=== PATIENT | male | born 1950 | race Caucasian/White ===

== ENCOUNTER 2024-04-17 15:41 | Emergency (ER) | payer OTHER, SELFPAY ==
[2024-04-17 17:00] LABS: Hematocrit 36.5 % (42.0-52.0); Hemoglobin 11.7 g/dL (14.0-18.0); Mean Corpuscular HGB CONC 32.1 g/dL (32.0-36.0); Mean Corpuscular Volume 99.5 fl (78.0-98.0); Mean Platelet Volume 6.4 fL (7.4-10.4); Platelet Count 248 10x3/uL (130-400); RBC Distribution Width 12.8 % (11.5-14.5); Red Blood Cell (RBC) Count 3.66 mill/uL (4.70-6.10); White Blood Cell (WBC) Count 9.4 10x3/uL (4.8-10.8)
[2024-04-17] MEDS ORDERED: OLANZapine 5 MG TAB PO SCH (17:00)
[2024-04-17 17:08] LABS: ALT (SGPT) 72 U/L (Less than 45); AST (SGOT) 47 U/L (11-34); Acetaminophen Less than 10 mcg/mL (Less than 10); Albumin 3.5 g/dL (3.1-4.5); Alcohol Less than 10.0 mg/dL (Less than 10); Alkaline Phosphatase 82 U/L (40-110); Anion Gap 12 mmol/L (10-20); BUN (Urea Nitrogen) 23 mg/dL (8.4-25.7); Bilirubin, Total 0.1 mg/dL (0.3-1.2); CK (CPK) 85 U/L (30-200); Calc. Creatinine Clearance 0 mL/min (70-130); Calcium 8.7 mg/dL (7.8-10.44); Carbon Dioxide 26 mmol/L (23-31); Chloride 106 mmol/L (98-107); Estimated GFR 76; Globulin 3.5 g/dL (2.4-3.5); Glucose 104 mg/dL (83-110); Potassium 4.8 mmol/L (3.5-5.1); Salicylate Less than 8.0 mg/dL (Less than 8.0); Sodium 139 mmol/L (136-145)
[2024-04-17 17:15] LABS: Band 3 % (5-11); Eosinophils 2 % (0-10); Lymphocytes 6 % (21-51); MDiff Complete? YES; Manual Diff?? YES; Monocytes 4 % (0-10); Neutrophil 59 % (42-75); Reactive Lymphocytes 26 % (0-10)
[2024-04-17 17:16] LABS: Macrocytosis SLIGHT = 6-15 cells (100X) (0-5/hpf)
[2024-04-17 17:17] LABS: Platelet Adequacy Comment Appears Adequate
[2024-04-17 20:09] LABS: Bilirubin Negative (Negative); Blood, Urine Negative (Negative); CAUTI Indications for Culture Acute Hematuria; Clarity Clear (Clear); Glucose, Urine (Dipstick) Negative (Negative); Ketone, Urine Negative (Negative); Leukocyte Negative (Negative); Nitrite Negative (Negative); Protein, Urine (Dipstick) Negative (Neg-Trace); RBC/HPF None Seen HPF (0-3); Squamous Epithelial 0-3 HPF (0-3); Urobilinogen 0.2 mg/dL (Less than 2); WBC/HPF None Seen HPF (0-3)
[2024-04-17 20:10] LABS: Urine Culture Reflex No No
[2024-04-17 20:11] LABS: Amphetamine Not Detected (NotDetected); Barbiturates Screen Not Detected (NotDetected); Benzodiazepine Screen Not Detected (NotDetected); Cocaine Metabolite Screen Not Detected (NotDetected); Methadone Not Detected (NotDetected); Methamphetamine Not Detected (NotDetected); Opiate Screen Not Detected (NotDetected); Oxycodone Screen Not Detected (NotDetected); Phencyclidine (PCP) Not Detected (NotDetected); THC/Cannabinoid Screen Not Detected (NotDetected); Tricyclic Screen Not Detected (NotDetected)
== END 2024-04-17 22:28 ==
LOC: MADERS 15:41
DX: R44.3 Hallucinations, unspecified (principal); E03.9 Hypothyroidism, unspecified; R74.01 Elevation of levels of liver transaminase levels; F17.210 Nicotine dependence, cigarettes, uncomplicated; Z91.199 Patient's noncompliance with other medical treatment and regimen due to unspecified reason
CPT/HCPCS: 36415; 70450; 80053; 80306; 80307; 81001; 82550; 84443; 85025; 93005

== ENCOUNTER 2024-12-16 13:39 | Emergency (ER) | payer MEDICARE, MEDICAID ==
[2024-12-16] MEDS ORDERED: Acetaminophen 500 MG TAB ONE (15:00)
[2024-12-16] MEDS ORDERED: Bacitracin 1 PK ONE (15:00)
[2024-12-16] MEDS ORDERED: Sulfameth/Trimethoprim DS 800-160mg TAB ONE (15:00)
== END 2024-12-16 15:21 | disposition home or self-care (01) ==
LOC: MADERS 13:39
DX: S05.12XA Contusion of eyeball and orbital tissues, left eye, initial encounter (principal); L89.222 Pressure ulcer of left hip, stage 2; L89.212 Pressure ulcer of right hip, stage 2; I25.10 Atherosclerotic heart disease of native coronary artery without angina pectoris; I10 Essential (primary) hypertension; J44.9 Chronic obstructive pulmonary disease, unspecified; I48.91 Unspecified atrial fibrillation; K21.9 Gastro-esophageal reflux disease without esophagitis; E78.5 Hyperlipidemia, unspecified; F17.210 Nicotine dependence, cigarettes, uncomplicated; Z79.01 Long term (current) use of anticoagulants; Z79.51 Long term (current) use of inhaled steroids; Z79.899 Other long term (current) drug therapy; W01.10XA Fall on same level from slipping, tripping and stumbling with subsequent striking against unspecified object, initial encounter
CPT/HCPCS: 99283

== ENCOUNTER 2024-12-30 16:20 | Emergency (ER) | payer MEDICAID, MEDICARE ==
[~2024-12-30 16:20] MED LIST: Iopamidol 370 76% 100 ML VIAL ONE
[2024-12-30 17:27] LABS: Hematocrit 35.9 % (42.0-52.0); Hemoglobin 11.6 g/dL (14.0-18.0); Mean Corpuscular Hemoglobin 30.0 pg (27.0-31.0); Mean Corpuscular Volume 92.7 fl (78.0-98.0); Platelet Count 246 10x3/uL (130-400); Red Blood Cell (RBC) Count 3.88 mill/uL (4.70-6.10); White Blood Cell (WBC) Count 5.8 10x3/uL (4.8-10.8)
[2024-12-30 17:38] LABS: MDiff Complete? YES; Manual Diff?? YES
[2024-12-30 17:39] LABS: ALT (SGPT) 137 U/L (Less than 45); AST (SGOT) 154 U/L (11-34); Albumin 2.9 g/dL (3.1-4.5); Alkaline Phosphatase 186 U/L (40-110); Anion Gap 17 mmol/L (10-20); BUN (Urea Nitrogen) 21 mg/dL (8.4-25.7); Bilirubin, Total 0.2 mg/dL (0.3-1.2); Calc. Creatinine Clearance 0 mL/min (70-130); Calcium 8.2 mg/dL (7.8-10.44); Carbon Dioxide 22 mmol/L (23-31); Chloride 103 mmol/L (98-107); Globulin 3.4 g/dL (2.4-3.5); Glucose 94 mg/dL (83-110); Magnesium 1.7 mg/dL (1.6-2.6); Platelet Adequacy Comment Appears Adequate; Potassium 5.5 mmol/L (3.5-5.1); Sodium 136 mmol/L (136-145); Troponin I 0.010 ng/mL (< 0.028)
[2024-12-30] MEDS ORDERED: Dextrose 50% Abboject 50 ML SYRINGE ONE (18:31)
== END 2024-12-30 20:12 | disposition short-term general hospital (02) ==
LOC: MADERS 16:20
DX: S00.83XA Contusion of other part of head, initial encounter (principal); R55 Syncope and collapse; E87.5 Hyperkalemia; R00.1 Bradycardia, unspecified; I25.10 Atherosclerotic heart disease of native coronary artery without angina pectoris; I48.91 Unspecified atrial fibrillation; F17.210 Nicotine dependence, cigarettes, uncomplicated; Z79.01 Long term (current) use of anticoagulants; Z79.899 Other long term (current) drug therapy; X58.XXXA Exposure to other specified factors, initial encounter
CPT/HCPCS: 36415; 70450; 70486; 71045; 71275; 72125; 74177; 80053; 83605; 83735; 83880; 84484; 85025; 85379; 93005; 96365; 96366; 96374; 96375; 96376; J0461; J1265; J1815; J7999; Q9967

== ENCOUNTER 2025-02-27 03:36 | Outpatient (CLI) | payer MEDICAID, MEDICARE ==
[2025-02-27 03:45] LABS: #Basophils 0.1 thou/uL (0.0-0.2); #Eosinophils 0.2 thou/uL (0.0-0.7); #Lymphocytes 3.4 thou/uL (1.20-3.40); #Monocytes 0.7 thou/uL (0.11-0.59); #Neutrophils 3.6 thou/uL (1.40-6.50); %Basophils 1.1 % (0.0-1.0); %Eosinophils 2.8 % (0.0-10.0); %Lymphocytes 42.9 % (21.0-51.0); %Monocytes 8.2 % (0.0-10.0); %Neutrophils 45.0 % (42.0-75.0); Hematocrit 35.7 % (42.0-52.0); Hemoglobin 11.3 g/dL (14.0-18.0); Mean Corpuscular Hemoglobin 30.1 pg (27.0-31.0); Mean Corpuscular Volume 95.0 fl (78.0-98.0); Platelet Count 255 10x3/uL (130-400); Red Blood Cell (RBC) Count 3.76 mill/uL (4.70-6.10); White Blood Cell (WBC) Count 8.0 10x3/uL (4.8-10.8)
[2025-02-27 04:06] LABS: ALT (SGPT) 19 U/L (Less than 45); AST (SGOT) 25 U/L (11-34); Albumin 2.8 g/dL (3.1-4.5); Alkaline Phosphatase 108 U/L (40-110); Anion Gap 15 mmol/L (10-20); BUN (Urea Nitrogen) 14 mg/dL (8.4-25.7); Bilirubin, Total 0.3 mg/dL (0.3-1.2); Calc. Creatinine Clearance 0 mL/min (70-130); Calcium 8.5 mg/dL (7.8-10.44); Carbon Dioxide 24 mmol/L (23-31); Cardiac Risk 3.4 (Less than 4.5); Chloride 106 mmol/L (98-107); Cholesterol 144 mg/dl (< 200 Desired); Globulin 3.4 g/dL (2.4-3.5); Glucose 100 mg/dL (83-110); HDL Cholesterol 42 mg/dL (>60 Neg Risk); LDL Cholesterol, Calculated 87 mg/dL; Potassium 4.2 mmol/L (3.5-5.1); Sodium 141 mmol/L (136-145); Triglycerides 76 mg/dL (Less than 150)
== END 2025-02-27 03:37 | disposition home or self-care (01) ==
LOC: MADLAB 03:36
PROVIDERS: ATTEND Nurse Practitioner Primary Care
DX: E03.9 Hypothyroidism, unspecified (principal); J44.9 Chronic obstructive pulmonary disease, unspecified; I48.0 Paroxysmal atrial fibrillation; I71.40 Abdominal aortic aneurysm, without rupture, unspecified; I25.10 Atherosclerotic heart disease of native coronary artery without angina pectoris; R00.1 Bradycardia, unspecified
CPT/HCPCS: 80053; 80061; 84443; 85025